=== PATIENT | female | born 1960 | race Caucasian/White ===

== ENCOUNTER 2016-08-28 12:11 | Emergency (ER) | payer OTHER ==
[~2016-08-28] VITALS: Ht 165.1 cm; Wt 64.3 kg
[~2016-08-28 12:11] MED LIST: AUGMENTIN875 MG PO; BEE POLLEN550 MG PO; BENTYL20 MG PO; BUSPAR10 MG PO; COCONUT OIL1000 MG PO; COGENTIN2 MG PO; COLACE100 MG PO; CYMBALTA60 MG PO; DAILY VITE1 EAC1 PO; DESYREL100 MG PO; FISH OIL 1,0001 EAC7 PO; FLEXERIL5 MG PO; HYDROXYZINE PAM25 MG PO; KLONOPIN0.5 M1 PO; LEVAQUIN500 MG PO; LEVOFLOXACIN750 MG PO; LORTAB 5-325 M1 EACH PO; MIRTAZAPINE30 MG PO; MOTRIN800 MG PO; NORCO 7.5/321 TABLET PO; PROBIOTIC1 EAC1 PO; REMERON15 M2 PO; SEROQUEL; SEROQUEL100 MG PO; SEROQUEL300 MG PO; SIMVASTATIN20 MG PO; TYLENOL EXTRA500 MG PO
[2016-08-28 12:58] LABS: HEMATOCRIT 46.5 % (36.0-46.0); MCH 30.8 PG (29.0-34.0); MCHC 33.3 G/DL (30.0-36.0); MCV 92.4 FL (83-99); MEAN PLAT.VOLUME 9.2 uM^3 (9.5-12.4); PLATELET COUNT 430 K/uL (156-360); RBC DIS.WIDTH-CV 13.9 % (11.8-14.6); RED BLOOD COUNT 5.03 M/uL (3.80-5.20); WHITE BLOOD COUNT 9.9 K/uL (4.1-10.2)
[2016-08-28 13:14] LABS: CHLORIDE 105 mEq/L (99-109); POTASSIUM 5.7 mEq/L (3.7-5.4); SODIUM 141 mEq/L (136-147)
[2016-08-28 13:17] LABS: ANION GAP 9 MEQ/L (2-14); GLUCOSE 95 mg/dL (70-99)
[2016-08-28 13:18] LABS: TOTAL BILIRUBIN 0.3 mg/dL (0.0-1.0)
[2016-08-28 13:20] LABS: ALKALINE PHOSPHATASE 96 IU/L (3-129); GFR ESTIMATE (CALCULATED) > 59 mL/min/
[2016-08-28 13:21] LABS: UREA NITROGEN (BUN) 14 mg/dL (9-23)
[2016-08-28 13:54] LABS: LIPASE 109 U/L (1.0-51.0)
[2016-08-28 16:30] LABS: ADD MIUA? YES; BILIRUBIN NEGATIVE; BLOOD NEGATIVE; COLOR YELLOW ((YELLOW)); GLUCOSE (STRIP) NEGATIVE; KETONES NEGATIVE; LEUKOCYTES NEGATIVE; NITRITE NEGATIVE; PROTEIN (STRIP) NEGATIVE; UROBILINOGEN 0.2 MG/DL (0.2-1.0)
[2016-08-28] MEDS ORDERED: ZOFRAN ODT4 MG PO (16:54)
[2016-08-28] MEDS ORDERED: MORPHINE SULFAT15 MG PO (16:54)
[2016-08-28 16:57] LABS: AMORPHOUS URATES CRYSTALS 2+; BACTERIA RARE /HPF; CASTS NONE SEEN /LPF; CRYSTALS PRESENT; EPITHELIAL CELLS RARE /HPF; MUCUS TRACE /LPF; RED BLOOD CELLS RARE /HPF (0-5); UCUL ADDED? NO; WHITE BLOOD CELLS RARE /HPF (0-5)
[2016-08-28 17:10] VITALS: BP 118/70
[2016-08-28 17:33] LABS: SPECIFIC GRAVITY 1.081 (1.000-1.030)
== END 2016-08-28 17:15 | disposition home or self-care (01) ==
LOC: EME 12:11
DX: K52.9 Noninfective gastroenteritis and colitis, unspecified (principal); K85.90 Acute pancreatitis without necrosis or infection, unspecified; E87.5 Hyperkalemia; B19.20 Unspecified viral hepatitis C without hepatic coma; K74.60 Unspecified cirrhosis of liver; J44.9 Chronic obstructive pulmonary disease, unspecified; Z85.3 Personal history of malignant neoplasm of breast; F17.200 Nicotine dependence, unspecified, uncomplicated
CPT/HCPCS: 74177; 80053; 81003; 83690; 85027; 99281; 99285; J2270; J2405

== ENCOUNTER 2016-09-20 09:46 | Emergency (ER) | payer OTHER ==
[~2016-09-20] VITALS: Ht 162.6 cm; Wt 63.5 kg
[~2016-09-20 09:46] MED LIST changes: +MORPHINE SULFAT15 MG PO; +ZOFRAN ODT4 MG PO
[2016-09-20 10:46] LABS: HEMATOCRIT 37.7 % (36.0-46.0); MCHC 34.7 G/DL (30.0-36.0); MCV 92.2 FL (83-99); RBC DIS.WIDTH-CV 13.2 % (11.8-14.6); RBC DIS.WIDTH-SD 45.1 % (39-53); RED BLOOD COUNT 4.09 M/uL (3.80-5.20)
[2016-09-20 10:56] LABS: CHLORIDE 105 mEq/L (99-109); POTASSIUM 3.9 mEq/L (3.7-5.4); SODIUM 138 mEq/L (136-147)
[2016-09-20 10:57] LABS: GLUCOSE 120 mg/dL (70-99)
[2016-09-20 10:59] LABS: ANION GAP 9 MEQ/L (2-14)
[2016-09-20 11:01] LABS: GFR ESTIMATE (CALCULATED) > 59 mL/min/
[2016-09-20 11:02] LABS: UREA NITROGEN (BUN) 12 mg/dL (9-23)
[2016-09-20 11:07] LABS: TROP-I INTERPRETATION NEGATIVE; TROPONIN-I < 0.01 ng/mL (0.0-0.30)
[2016-09-20 11:12] LABS: WHITE BLOOD COUNT 21.5 K/uL (4.1-10.2)
[2016-09-20 11:51] LABS: MEAN PLAT.VOLUME 9.1 uM^3 (9.5-12.4); PLAT.SUFFICIENCY ADEQUATE
[2016-09-20 12:09] LABS: PLATELET COUNT 286 K/uL (156-360)
[2016-09-20 13:43] LABS: ADD MIUA? YES; BILIRUBIN NEGATIVE; BLOOD MODERATE; COLOR YELLOW ((YELLOW)); GLUCOSE (STRIP) NEGATIVE; KETONES 20; LEUKOCYTES TRACE; NITRITE NEGATIVE; PROTEIN (STRIP) 100; UROBILINOGEN 0.2 MG/DL (0.2-1.0)
[2016-09-20 13:56] LABS: BACTERIA RARE /HPF; EPITHELIAL CELLS 1+ /HPF; MUCUS NONE SEEN /LPF; RED BLOOD CELLS TNTC /HPF (0-5); UCUL ADDED? NO; WHITE BLOOD CELLS 20-30 /HPF (0-5)
[2016-09-20 14:11] LABS: SPECIFIC GRAVITY 1.064 (1.000-1.030)
[2016-09-20] MEDS ORDERED: CIPRO500 MG PO (14:11)
[2016-09-20 15:30] VITALS: BP 116/65
== END 2016-09-20 15:32 | disposition home or self-care (01) ==
LOC: EME → EDBD 09:46 → EME 15:32
PROVIDERS: Emergency Medicine
DX: N12 Tubulo-interstitial nephritis, not specified as acute or chronic (principal); F17.200 Nicotine dependence, unspecified, uncomplicated; Z88.2 Allergy status to sulfonamides; Z91.030 Bee allergy status; J44.9 Chronic obstructive pulmonary disease, unspecified; B18.2 Chronic viral hepatitis C; Z85.3 Personal history of malignant neoplasm of breast
CPT/HCPCS: 71020; 74177; 80048; 81003; 83605; 84484; 85027; 99281; 99285; J0696; J1885; J7030; J7050

== ENCOUNTER 2017-02-10 07:53 | Emergency (ER) | payer OTHER ==
[~2017-02-10] VITALS: Ht 157.5 cm; Wt 65.2 kg
[~2017-02-10 07:53] MED LIST changes: +CIPRO500 MG PO
[2017-02-10 08:31] LABS: ADD MIUA? YES; BILIRUBIN NEGATIVE; BLOOD SMALL; COLOR YELLOW ((YELLOW)); GLUCOSE (STRIP) NEGATIVE; KETONES 80; LEUKOCYTES NEGATIVE; NITRITE NEGATIVE; PROTEIN (STRIP) 30; SPECIFIC GRAVITY 1.021 (1.000-1.030); UROBILINOGEN 0.2 MG/DL (0.2-1.0)
[2017-02-10 08:34] LABS: BACTERIA RARE /HPF; CALCIUM OXALATE CRYSTALS 1+ /HPF; EPITHELIAL CELLS 3+ /HPF; MUCUS NONE SEEN /LPF; RED BLOOD CELLS 20-30 /HPF (0-5); WHITE BLOOD CELLS 0-5 /HPF (0-5)
[2017-02-10 08:35] LABS: EOSINOPHIL (%) 0 % (0-5); IMMATURE GRANULOCYTE (%) 0.6 % (0.0-0.7); IMMATURE GRANULOCYTE COUNT 0.1 K/uL; INSTRUMENT ABS NEUTROPHIL CT 8.6 K/uL; MCH 31.8 PG (29.0-34.0); MCHC 33.7 G/DL (30.0-36.0); MCV 94.5 FL (83-99); MEAN PLAT.VOLUME 8.9 uM^3 (9.5-12.4); MONOCYTE (%) 6.9 % (3-12); MONOCYTE COUNT 0.7 K/uL (0-0.8); NEUTROPHIL COUNT 8.6 K/uL (1.8-6.4); PLATELET COUNT 393 K/uL (156-360); RBC DIS.WIDTH-CV 12.7 % (11.8-14.6); RBC DIS.WIDTH-SD 43.8 % (39-53); RED BLOOD COUNT 4.02 M/uL (3.80-5.20); WHITE BLOOD COUNT 10.4 K/uL (4.1-10.2)
[2017-02-10 08:40] LABS: ADD MEDTOX COMMENT Y; AMPHETAMINE NEGATIVE (500 ng/mL); BARBITURATES NEGATIVE (200 ng/mL); BENZODIAZEPINES NEGATIVE (150 ng/mL); COCAINE NEGATIVE (150 ng/mL); INTERNAL CONTROLS VALID? YES; METHADONE PRESUMPTIVE POSITIVE (200 ng/mL); METHAMPHETAMINE NEGATIVE (500 ng/mL); OPIATES (MORPHINE) NEGATIVE (100 ng/mL); OXYCODONE NEGATIVE (100 ng/mL); PHENCYCLIDINE NEGATIVE (25 ng/mL); PROPOXYPHENE NEGATIVE (300 ng/mL); THC CANNABINOIDS PRESUMPTIVE POSITIVE (50 ng/mL); TRICYCLIC ANTIDEPRESSANTS PRESUMPTIVE POSITIVE (300 ng/mL)
[2017-02-10 08:47] LABS: CHLORIDE 99 mEq/L (99-109); POTASSIUM 3.9 mEq/L (3.7-5.4); SODIUM 138 mEq/L (136-147)
[2017-02-10 08:49] LABS: GLUCOSE 123 mg/dL (70-99)
[2017-02-10 08:50] LABS: ANION GAP 7 MEQ/L (2-14)
[2017-02-10 08:52] LABS: SERUM ETHYL ALCOHOL < 10 mg/dL
[2017-02-10 08:53] LABS: GFR ESTIMATE (CALCULATED) > 59 mL/min/
[2017-02-10 08:54] LABS: UREA NITROGEN (BUN) 12 mg/dL (9-23)
[2017-02-10] MEDS ORDERED: ZOFRAN ODT4 MG PO (10:27)
[2017-02-10 10:30] VITALS: BP 110/65
[2017-02-11] MEDS ORDERED: ZOFRAN4 MG PO (06:09)
== END 2017-02-10 10:31 | disposition home or self-care (01) ==
LOC: EME 07:53
PROVIDERS: Emergency Medicine
DX: R11.2 Nausea with vomiting, unspecified (principal); E86.0 Dehydration; F19.10 Other psychoactive substance abuse, uncomplicated; J44.9 Chronic obstructive pulmonary disease, unspecified; F32.9 Major depressive disorder, single episode, unspecified; F31.9 Bipolar disorder, unspecified; F41.9 Anxiety disorder, unspecified; Z85.3 Personal history of malignant neoplasm of breast; F17.200 Nicotine dependence, unspecified, uncomplicated; Z79.891 Long term (current) use of opiate analgesic
CPT/HCPCS: 80048; 81003; 84999; 85025; 99281; 99284; G0480; J2405

== ENCOUNTER 2017-02-11 04:11 | Emergency (ER) | payer OTHER ==
[~2017-02-11] VITALS: Ht 157.5 cm; Wt 57.2 kg
[2017-02-11 05:29] LABS: CHLORIDE 103 mEq/L (99-109); POTASSIUM 3.4 mEq/L (3.7-5.4); SODIUM 139 mEq/L (136-147)
[2017-02-11 05:32] LABS: GLUCOSE 98 mg/dL (70-99)
[2017-02-11 05:33] LABS: ANION GAP 5 MEQ/L (2-14)
[2017-02-11 05:34] LABS: TOTAL BILIRUBIN 0.1 mg/dL (0.0-1.0)
[2017-02-11 05:35] LABS: ALKALINE PHOSPHATASE 80 IU/L (3-129); GFR ESTIMATE (CALCULATED) > 59 mL/min/
[2017-02-11 05:36] LABS: UREA NITROGEN (BUN) 9 mg/dL (9-23)
[2017-02-11 05:38] LABS: HEMATOCRIT 35.2 % (36.0-46.0); MCH 31.6 PG (29.0-34.0); MCHC 32.7 G/DL (30.0-36.0); MCV 96.7 FL (83-99); MEAN PLAT.VOLUME 9.4 uM^3 (9.5-12.4); PLATELET COUNT 369 K/uL (156-360); RBC DIS.WIDTH-CV 13.2 % (11.8-14.6); RBC DIS.WIDTH-SD 46.4 % (39-53); RED BLOOD COUNT 3.64 M/uL (3.80-5.20); WHITE BLOOD COUNT 8.4 K/uL (4.1-10.2)
[2017-02-11 05:39] LABS: LIPASE 10 U/L (1.0-51.0)
[2017-02-11] MEDS ORDERED: ZOFRAN4 MG PO (06:09)
[2017-02-11 07:08] VITALS: BP 104/71
== END 2017-02-11 07:10 | disposition home or self-care (01) ==
LOC: EME → EDBD 04:11 → EME 07:10
PROVIDERS: Emergency Medicine
DX: F11.23 Opioid dependence with withdrawal (principal); J44.9 Chronic obstructive pulmonary disease, unspecified; F32.9 Major depressive disorder, single episode, unspecified; F41.9 Anxiety disorder, unspecified; Z85.3 Personal history of malignant neoplasm of breast; F17.200 Nicotine dependence, unspecified, uncomplicated; Z88.2 Allergy status to sulfonamides
CPT/HCPCS: 71010; 80053; 83605; 83690; 85027; 99281; 99285; J2060; J7030

== ENCOUNTER 2017-03-11 03:59 | Inpatient (IN) | payer OTHER ==
[~2017-03-11] VITALS: Ht 157.5 cm; Wt 63.3 kg
[~2017-03-11 03:59] MED LIST changes: +ZOFRAN4 MG PO
[2017-03-11 04:25] LABS: EOSINOPHIL (%) 4.1 % (0-5); EOSINOPHIL COUNT 0.4 K/uL (0-0.3); HEMATOCRIT 37.7 % (36.0-46.0); IMMATURE GRANULOCYTE (%) 0.6 % (0.0-0.7); IMMATURE GRANULOCYTE COUNT 0.1 K/uL; INSTRUMENT ABS NEUTROPHIL CT 6.2 K/uL; LYMPHOCYTE COUNT 1.5 K/uL (1.0-2.8); MCH 31.1 PG (29.0-34.0); MCHC 32.9 G/DL (30.0-36.0); MCV 94.5 FL (83-99); MEAN PLAT.VOLUME 9.1 uM^3 (9.5-12.4); MONOCYTE (%) 9.8 % (3-12); MONOCYTE COUNT 0.9 K/uL (0-0.8); NEUTROPHIL (%) 68.9 % (45-76); NEUTROPHIL COUNT 6.2 K/uL (1.8-6.4); PLATELET COUNT 473 K/uL (156-360); RBC DIS.WIDTH-CV 13.8 % (11.8-14.6); RBC DIS.WIDTH-SD 48.1 % (39-53); RED BLOOD COUNT 3.99 M/uL (3.80-5.20); WHITE BLOOD COUNT 9.1 K/uL (4.1-10.2)
[2017-03-11 04:30] LABS: INTER. NORMALIZED RATIO 1.1
[2017-03-11 04:33] LABS: PTT 28.7 SEC (25-37)
[2017-03-11 04:35] LABS: CHLORIDE 100 mEq/L (99-109); POTASSIUM 5.1 mEq/L (3.7-5.4); SODIUM 141 mEq/L (136-147)
[2017-03-11 04:36] LABS: GLUCOSE 92 mg/dL (70-99)
[2017-03-11 04:38] LABS: ANION GAP 14 MEQ/L (2-14)
[2017-03-11 04:40] LABS: GFR ESTIMATE (CALCULATED) > 59 mL/min/
[2017-03-11 04:41] LABS: UREA NITROGEN (BUN) 6 mg/dL (9-23)
[2017-03-11 04:43] LABS: CREATINE KINASE 50 IU/L (1-294)
[2017-03-11] MEDS ORDERED: QUETIAPINE FUMA50 MG PO (09:09)
[2017-03-11] MEDS ORDERED: METAMUCIL PACK3.4 GM PO (09:11)
[2017-03-11] MEDS ORDERED: ZOFRAN4 MG PO (09:13)
[2017-03-11] MEDS ORDERED: REMERON30 M2 PO (09:14)
[2017-03-11] MEDS ORDERED: EFFEXOR XR150 MG PO (09:14)
[2017-03-11] MEDS ORDERED: IBUPROFEN800 MG PO (09:15)
[2017-03-11] MEDS ORDERED: GABAPENTIN300 MG PO (09:15)
[2017-03-11] MEDS ORDERED: METHADONE 22 MG/1 ML PO (09:17)
[2017-03-11 13:31] VITALS: BP 123/58
[2017-03-11 16:53] LABS: INFLUENZA A VIRAL ANTIGEN NEGATIVE; INFLUENZA B VIRAL ANTIGEN NEGATIVE
[2017-03-11 19:15] VITALS: BP 117/72
[2017-03-11 23:44] VITALS: BP 103/64
[2017-03-12 03:29] VITALS: BP 110/70
[2017-03-12 06:49] LABS: HEMATOCRIT 36.7 % (36.0-46.0); MCH 30.4 PG (29.0-34.0); MCHC 31.9 G/DL (30.0-36.0); MCV 95.3 FL (83-99); MEAN PLAT.VOLUME 9.2 uM^3 (9.5-12.4); PLATELET COUNT 498 K/uL (156-360); RBC DIS.WIDTH-CV 13.7 % (11.8-14.6); RED BLOOD COUNT 3.85 M/uL (3.80-5.20)
[2017-03-12 07:29] LABS: ANION GAP 10 MEQ/L (2-14); CHLORIDE 102 MEQ/L (99-109); GFR ESTIMATE (CALCULATED) > 59 mL/min/; POTASSIUM 5.2 MEQ/L (3.7-5.4); SAMPLE HEMOLYSIS CHECK 0; SAMPLE ICTERIC CHECK 0; SAMPLE LIPEMIA CHECK 0; SODIUM 142 MEQ/L (136-147); UREA NITROGEN (BUN) 9 mg/dL (9-23)
[2017-03-12 07:30] LABS: GLUCOSE 182 mg/dL (70-99)
[2017-03-12 08:06] VITALS: BP 94/73
[2017-03-12 08:29] LABS: INTERNAL CONTROL VALID? YES
[2017-03-12 12:30] VITALS: BP 113/68
[2017-03-12 18:04] VITALS: BP 128/72
[2017-03-12 23:59] VITALS: BP 120/68
[2017-03-13 07:39] VITALS: BP 138/80
[2017-03-13] MEDS ORDERED: AZITHROMYCIN250 MG PO (11:33)
[2017-03-13] MEDS ORDERED: PREDNISONE10 MG PO ×2 (11:33→15:39)
[2017-03-13] MEDS ORDERED: CEFTIN500 MG PO ×2 (11:33→15:40)
[2017-03-13] MEDS ORDERED: NICOTINE PATCH1 EAC2 TD (11:33)
[2017-03-13] MEDS ORDERED: METHADONE HCL40 MG PO (15:37)
[2017-03-13] MEDS ORDERED: PEPCID20 MG PO (15:37)
[2017-03-13] MEDS ORDERED: AZITHROMYCIN250 MG1 PO (15:41)
[2017-03-13] MEDS ORDERED: ATARAX,VISTARIL25 MG PO (15:42)
== END 2017-03-13 13:44 | DRG 189 ==
LOC: EME → EDBD 03:59 → EDOF 05:35 → 5SOUTH 05:35 → ENRESERV 05:35 → 5SOUTH 13:09
PROVIDERS: Emergency Medicine; Hospitalist; Internal Medicine
DX: J96.01 Acute respiratory failure with hypoxia (principal); J18.9 Pneumonia, unspecified organism; M79.89 Other specified soft tissue disorders; M19.011 Primary osteoarthritis, right shoulder; J43.9 Emphysema, unspecified; F33.9 Major depressive disorder, recurrent, unspecified; F31.9 Bipolar disorder, unspecified; M54.2 Cervicalgia; R60.0 Localized edema; M54.12 Radiculopathy, cervical region; F17.200 Nicotine dependence, unspecified, uncomplicated; G89.29 Other chronic pain; Z91.5 Personal history of self-harm; Z85.3 Personal history of malignant neoplasm of breast; Z82.3 Family history of stroke; Z79.899 Other long term (current) drug therapy; Z92.3 Personal history of irradiation; Z81.8 Family history of other mental and behavioral disorders; Z88.0 Allergy status to penicillin; Z88.6 Allergy status to analgesic agent; Z91.030 Bee allergy status; Z81.1 Family history of alcohol abuse and dependence
CPT/HCPCS: 71275; 73030; 73130; 80048; 82550; 83605; 83880; 85025; 85027; 85610; 85730; 87040; 87449; 87502; 93005; 93971; 94640; 94640 76; 94799; 99202; 99281; 99285; J0696; J1650; J1956; J2920; J3301; J7030; J7050; J7512

== ENCOUNTER 2017-03-13 13:14 | Inpatient (IN) | payer OTHER ==
[~2017-03-13] VITALS: Ht 157.5 cm; Wt 56.4 kg
[~2017-03-13 13:14] MED LIST changes: +AZITHROMYCIN250 MG PO; +CEFTIN500 MG PO; +EFFEXOR XR150 MG PO; +GABAPENTIN300 MG PO; +IBUPROFEN800 MG PO; +METAMUCIL PACK3.4 GM PO; +METHADONE 22 MG/1 ML PO; +NICOTINE PATCH1 EAC2 TD; +PREDNISONE10 MG PO; +QUETIAPINE FUMA50 MG PO; +REMERON30 M2 PO
[2017-03-13 14:05] VITALS: BP 140/83
[2017-03-13 14:28] VITALS: BP 140/83
[2017-03-13] MEDS ORDERED: METHADONE HCL40 MG PO (15:37)
[2017-03-13] MEDS ORDERED: PEPCID20 MG PO (15:37)
[2017-03-13] MEDS ORDERED: PREDNISONE10 MG PO (15:39)
[2017-03-13] MEDS ORDERED: CEFTIN500 MG PO (15:40)
[2017-03-13] MEDS ORDERED: AZITHROMYCIN250 MG1 PO (15:41)
[2017-03-13] MEDS ORDERED: ATARAX,VISTARIL25 MG PO (15:42)
[2017-03-14 07:56] VITALS: BP 150/81
[2017-03-14 11:58] VITALS: BP 111/65
[2017-03-14 15:33] VITALS: BP 132/78
[2017-03-15 07:43] VITALS: BP 156/74
[2017-03-15 11:36] VITALS: BP 117/77
[2017-03-15 15:30] VITALS: BP 128/67
[2017-03-16 07:38] VITALS: BP 120/77
[2017-03-16 17:49] VITALS: BP 137/75
[2017-03-17 07:59] VITALS: BP 118/74
[2017-03-17] MEDS ORDERED: AZITHROMYCIN250 MG1 PO (09:08)
[2017-03-17] MEDS ORDERED: CEFTIN500 MG PO (09:08)
== END 2017-03-17 11:25 | disposition home or self-care (01) | DRG 885 ==
LOC: 1WEST 13:14
DX: F33.1 Major depressive disorder, recurrent, moderate (principal); J18.9 Pneumonia, unspecified organism; F11.20 Opioid dependence, uncomplicated; B18.2 Chronic viral hepatitis C; F17.210 Nicotine dependence, cigarettes, uncomplicated; F19.11 Other psychoactive substance abuse, in remission; F41.9 Anxiety disorder, unspecified; K59.00 Constipation, unspecified; Z88.5 Allergy status to narcotic agent; Z88.2 Allergy status to sulfonamides; Z91.5 Personal history of self-harm; Z85.3 Personal history of malignant neoplasm of breast; Z81.8 Family history of other mental and behavioral disorders
CPT/HCPCS: 97150 GO; J7512

== ENCOUNTER 2017-04-09 10:38 | Emergency (ER) | payer OTHER ==
[~2017-04-09] VITALS: Ht 157.5 cm; Wt 55.4 kg
[~2017-04-09 10:38] MED LIST changes: +ATARAX,VISTARIL25 MG PO; +AZITHROMYCIN250 MG1 PO; +METHADONE HCL40 MG PO; +PEPCID20 MG PO
[2017-04-09 12:23] LABS: HEMATOCRIT 50.3 % (36.0-46.0); MCH 31.3 PG (29.0-34.0); MCV 92.1 FL (83-99); MEAN PLAT.VOLUME 9.6 uM^3 (9.5-12.4); PLATELET COUNT 391 K/uL (156-360); RBC DIS.WIDTH-CV 14.4 % (11.8-14.6); WHITE BLOOD COUNT 12.9 K/uL (4.1-10.2)
[2017-04-09 12:24] LABS: RED BLOOD COUNT 5.46 M/uL (3.80-5.20)
[2017-04-09 12:31] LABS: CHLORIDE 104 mEq/L (99-109); POTASSIUM 4.7 mEq/L (3.7-5.4); SODIUM 142 mEq/L (136-147)
[2017-04-09 12:32] LABS: GLUCOSE 139 mg/dL (70-99)
[2017-04-09 12:34] LABS: ANION GAP 13 MEQ/L (2-14)
[2017-04-09 12:36] LABS: GFR ESTIMATE (CALCULATED) 54 mL/min/
[2017-04-09 12:37] LABS: UREA NITROGEN (BUN) 17 mg/dL (9-23)
[2017-04-09 13:30] VITALS: BP 152/85
[2017-04-09 13:55] LABS: BILIRUBIN NEGATIVE; BLOOD NEGATIVE; GLUCOSE (STRIP) NEGATIVE; KETONES 20; LEUKOCYTES NEGATIVE; NITRITE NEGATIVE; PROTEIN (STRIP) 30; SPECIFIC GRAVITY 1.027 (1.000-1.030)
[2017-04-09 13:56] LABS: ADD MIUA? NO; COLOR DK YELLOW ((YELLOW)); UCUL ADDED? NO
[2017-04-09] MEDS ORDERED: ZOFRAN4 MG PO (14:24)
== END 2017-04-09 17:29 | disposition home or self-care (01) ==
LOC: EME 10:38
DX: R11.2 Nausea with vomiting, unspecified (principal); F33.1 Major depressive disorder, recurrent, moderate; J44.9 Chronic obstructive pulmonary disease, unspecified; F41.9 Anxiety disorder, unspecified; F17.200 Nicotine dependence, unspecified, uncomplicated; Z85.3 Personal history of malignant neoplasm of breast; Z88.2 Allergy status to sulfonamides
CPT/HCPCS: 80048; 81003; 85027; 90839; J2405; J7030

== ENCOUNTER 2017-04-15 04:13 | Observation (INO) | payer OTHER ==
[~2017-04-15] VITALS: Ht 157.5 cm; Wt 59.2 kg
[2017-04-15 04:53] LABS: BASOPHIL COUNT 0.1 K/uL (0-0.1); EOSINOPHIL (%) 0.8 % (0-5); EOSINOPHIL COUNT 0.1 K/uL (0-0.3); HEMATOCRIT 51.9 % (36.0-46.0); IMMATURE GRANULOCYTE (%) 0.6 % (0.0-0.7); IMMATURE GRANULOCYTE COUNT 0.1 K/uL; INSTRUMENT ABS NEUTROPHIL CT 11.4 K/uL; LYMPHOCYTE COUNT 2.7 K/uL (1.0-2.8); MCH 30.7 PG (29.0-34.0); MCHC 33.1 G/DL (30.0-36.0); MCV 92.5 FL (83-99); MEAN PLAT.VOLUME 9.6 uM^3 (9.5-12.4); MONOCYTE (%) 7.3 % (3-12); MONOCYTE COUNT 1.1 K/uL (0-0.8); NEUTROPHIL (%) 73.5 % (45-76); NEUTROPHIL COUNT 11.4 K/uL (1.8-6.4); PLATELET COUNT 373 K/uL (156-360); RBC DIS.WIDTH-CV 14.4 % (11.8-14.6); RBC DIS.WIDTH-SD 49.3 % (39-53); RED BLOOD COUNT 5.61 M/uL (3.80-5.20); WHITE BLOOD COUNT 15.6 K/uL (4.1-10.2)
[2017-04-15 05:00] LABS: CHLORIDE 105 mEq/L (99-109); POTASSIUM 4.9 mEq/L (3.7-5.4); SODIUM 142 mEq/L (136-147)
[2017-04-15 05:02] LABS: GLUCOSE 105 mg/dL (70-99)
[2017-04-15 05:03] LABS: ANION GAP 13 MEQ/L (2-14)
[2017-04-15 05:04] LABS: TOTAL BILIRUBIN < 0.1 mg/dL (0.0-1.0)
[2017-04-15 05:06] LABS: ALKALINE PHOSPHATASE 101 IU/L (3-129); GFR ESTIMATE (CALCULATED) > 59 mL/min/
[2017-04-15 05:07] LABS: UREA NITROGEN (BUN) 15 mg/dL (9-23)
[2017-04-15 05:09] LABS: LIPASE 11 U/L (1.0-51.0)
[2017-04-15 05:47] LABS: C DIFF TOXIN NEGATIVE (NEGATIVE)
[2017-04-15 05:50] LABS: PROBE CHECK PASS; SPECIMEN PROCESSING CONTROL PASS
[2017-04-15] MEDS ORDERED: LAMOTRIGINE25 MG PO (08:17)
[2017-04-15 08:49] LABS: TROP-I INTERPRETATION NEGATIVE; TROPONIN-I < 0.01 ng/mL (0.0-0.30)
[2017-04-15 14:23] LABS: TROP-I INTERPRETATION NEGATIVE; TROPONIN-I < 0.01 ng/mL (0.0-0.30)
[2017-04-15 15:39] VITALS: BP 127/73
[2017-04-15] MEDS ORDERED: COLACE100 MG PO (16:47)
[2017-04-15 20:00] VITALS: BP 118/79
[2017-04-15 20:42] LABS: TROP-I INTERPRETATION NEGATIVE; TROPONIN-I < 0.01 ng/mL (0.0-0.30)
[2017-04-16 00:04] VITALS: BP 120/76
[2017-04-16 05:24] LABS: MCH 30.2 PG (29.0-34.0); MCHC 32.1 G/DL (30.0-36.0); MCV 94.1 FL (83-99); MEAN PLAT.VOLUME 9.1 uM^3 (9.5-12.4); PLATELET COUNT 335 K/uL (156-360); RBC DIS.WIDTH-CV 14.4 % (11.8-14.6); RBC DIS.WIDTH-SD 49.8 % (39-53)
[2017-04-16 05:25] LABS: RED BLOOD COUNT 4.04 M/uL (3.80-5.20)
[2017-04-16 08:00] VITALS: BP 122/75
[2017-04-16] MEDS ORDERED: LOPERAMIDE2 MG PO (09:51)
[2017-04-16] MEDS ORDERED: ZOFRAN4 MG PO (09:51)
[2017-04-16] MEDS ORDERED: NICOTINE PATCH1 EAC2 TD (09:52)
[2017-04-16 12:16] VITALS: BP 119/74
== END 2017-04-16 12:48 | disposition home or self-care (01) ==
LOC: EME → EDBD 04:13 → EME 04:13 → EDOF 07:52 → 5WEST 07:52 → ENRESERV 07:59 → EDOF 08:06 → ENRESERV 13:17 → 5WEST 15:10
PROVIDERS: Emergency Medicine; Internal Medicine
DX: R11.2 Nausea with vomiting, unspecified (principal); E86.0 Dehydration; F11.20 Opioid dependence, uncomplicated; I10 Essential (primary) hypertension; K38.1 Appendicular concretions; R19.7 Diarrhea, unspecified; F10.21 Alcohol dependence, in remission; F17.200 Nicotine dependence, unspecified, uncomplicated; F31.9 Bipolar disorder, unspecified; Z91.5 Personal history of self-harm; B18.2 Chronic viral hepatitis C; Z85.3 Personal history of malignant neoplasm of breast; Z92.3 Personal history of irradiation; D72.829 Elevated white blood cell count, unspecified; Z88.2 Allergy status to sulfonamides; Z88.5 Allergy status to narcotic agent; Z91.030 Bee allergy status
CPT/HCPCS: 74176; 80053; 81003; 83690; 84484; 85025; 85027; 87493; 87506; 93005; 99202; 99281; 99285; G0378; J1650; J2405; J2765; J7030; Q0169; S0028

== ENCOUNTER 2017-07-09 12:46 | Emergency (ER) | payer OTHER ==
[~2017-07-09] VITALS: Ht 160 cm; Wt 54.7 kg
[~2017-07-09 12:46] MED LIST changes: +LAMOTRIGINE25 MG PO; +LOPERAMIDE2 MG PO
[2017-07-09 13:32] LABS: BASOPHIL (%) 0.2 % (0-1); EOSINOPHIL (%) 0.3 % (0-5); HEMATOCRIT 43.8 % (36.0-46.0); HEMOGLOBIN 15.1 G/DL (11.9-15.5); IMMATURE GRANULOCYTE (%) 0.3 % (0.0-0.7); LYMPHOCYTE (%) 14.6 % (15-42); LYMPHOCYTE COUNT 1.6 K/uL (1.0-2.8); MCHC 34.5 G/DL (30.0-36.0); MCV 89.9 FL (83-99); MONOCYTE (%) 5.8 % (3-12); MONOCYTE COUNT 0.6 K/uL (0-0.8); NEUTROPHIL (%) 78.8 % (45-76); NEUTROPHIL COUNT 8.6 K/uL (1.8-6.4); PLATELET COUNT 397 K/uL (156-360); RBC DIS.WIDTH-CV 13.5 % (11.8-14.6); RBC DIS.WIDTH-SD 44.8 % (39-53); RED BLOOD COUNT 4.87 M/uL (3.80-5.20)
[2017-07-09 13:37] LABS: CHLORIDE 103 mEq/L (99-109); SODIUM 137 mEq/L (136-147)
[2017-07-09 13:40] LABS: GLUCOSE 133 mg/dL (70-99); TOTAL PROTEIN 6.6 g/dL (6.4-8.3)
[2017-07-09 13:41] LABS: TOTAL BILIRUBIN 0.4 mg/dL (0.0-1.0)
[2017-07-09 13:42] LABS: SERUM ETHYL ALCOHOL < 10 mg/dL
[2017-07-09 13:43] LABS: ALKALINE PHOSPHATASE 96 IU/L (3-129); CREATININE 1.1 mg/dL (0.6-1.3); GFR ESTIMATE (CALCULATED) 54 mL/min/
[2017-07-09 13:44] LABS: UREA NITROGEN (BUN) 23 mg/dL (9-23)
[2017-07-09 13:45] LABS: AST (GOT) 18 IU/L (2-34)
[2017-07-09 13:46] LABS: ALT (GPT) 16 IU/L (3-49)
[2017-07-09 14:48] LABS: AMPHETAMINE NEGATIVE (500 ng/mL); BARBITURATES NEGATIVE (200 ng/mL); BENZODIAZEPINES NEGATIVE (150 ng/mL); COCAINE NEGATIVE (150 ng/mL); METHADONE PRESUMPTIVE POSITIVE (200 ng/mL); METHAMPHETAMINE NEGATIVE (500 ng/mL); OPIATES (MORPHINE) NEGATIVE (100 ng/mL); PHENCYCLIDINE PRESUMPTIVE POSITIVE (25 ng/mL); THC CANNABINOIDS PRESUMPTIVE POSITIVE (50 ng/mL); TRICYCLIC ANTIDEPRESSANTS PRESUMPTIVE POSITIVE (300 ng/mL)
[2017-07-09 14:49] LABS: BUPRENORPHINE NEGATIVE (10 ng/mL); OXYCODONE NEGATIVE (100 ng/mL); PROPOXYPHENE NEGATIVE (300 ng/mL)
[2017-07-09 16:00] VITALS: BP 134/97
== END 2017-07-09 16:05 | disposition home or self-care (01) ==
LOC: EME 12:46
PROVIDERS: Emergency Medicine
DX: F33.1 Major depressive disorder, recurrent, moderate (principal); J44.9 Chronic obstructive pulmonary disease, unspecified; B19.20 Unspecified viral hepatitis C without hepatic coma; G89.29 Other chronic pain; F31.9 Bipolar disorder, unspecified; F41.9 Anxiety disorder, unspecified; F32.9 Major depressive disorder, single episode, unspecified; F17.200 Nicotine dependence, unspecified, uncomplicated; Z79.891 Long term (current) use of opiate analgesic; Z85.3 Personal history of malignant neoplasm of breast; Z90.10 Acquired absence of unspecified breast and nipple; Z88.2 Allergy status to sulfonamides; Z88.5 Allergy status to narcotic agent; Z91.030 Bee allergy status
CPT/HCPCS: 80053; 84999; 85025; 90839; 99281; 99285; G0480

== ENCOUNTER 2017-08-26 10:38 | Emergency (ER) | payer OTHER ==
[~2017-08-26] VITALS: Ht 157.5 cm; Wt 54.7 kg
[2017-08-26 11:14] LABS: HEMATOCRIT 43.7 % (36.0-46.0); HEMOGLOBIN 14.9 G/DL (11.9-15.5); MCH 31.8 PG (29.0-34.0); MCHC 34.1 G/DL (30.0-36.0); MCV 93.4 FL (83-99); PLATELET COUNT 367 K/uL (156-360); RBC DIS.WIDTH-CV 13.6 % (11.8-14.6); RBC DIS.WIDTH-SD 46.5 % (39-53); RED BLOOD COUNT 4.68 M/uL (3.80-5.20); WHITE BLOOD COUNT 10.7 K/uL (4.1-10.2)
[2017-08-26 11:26] LABS: ALBUMIN 4.2 g/dL (3.2-4.8); CHLORIDE 104 mEq/L (99-109); POTASSIUM 4.5 mEq/L (3.7-5.4); SODIUM 141 mEq/L (136-147)
[2017-08-26 11:28] LABS: GLUCOSE 117 mg/dL (70-99); TOTAL PROTEIN 6.8 g/dL (6.4-8.3)
[2017-08-26 11:30] LABS: TOTAL BILIRUBIN 0.4 mg/dL (0.0-1.0)
[2017-08-26 11:32] LABS: ALKALINE PHOSPHATASE 97 IU/L (3-129); CREATININE 0.8 mg/dL (0.6-1.3); GFR ESTIMATE (CALCULATED) > 59 mL/min/
[2017-08-26 11:33] LABS: UREA NITROGEN (BUN) 15 mg/dL (9-23)
[2017-08-26 11:34] LABS: AST (GOT) 18 IU/L (2-34)
[2017-08-26 11:35] LABS: ALT (GPT) 16 IU/L (3-49)
[2017-08-26 11:47] LABS: APPEARANCE SL.HAZY ((CLEAR)); BILIRUBIN NEGATIVE; BLOOD NEGATIVE; COLOR YELLOW ((YELLOW)); GLUCOSE (STRIP) NEGATIVE; KETONES NEGATIVE; LEUKOCYTES TRACE; NITRITE NEGATIVE; PROTEIN (STRIP) NEGATIVE; SPECIFIC GRAVITY 1.017 (1.000-1.030); UROBILINOGEN 0.2 MG/DL (0.2-1.0)
[2017-08-26 11:56] LABS: BACTERIA NONE SEEN /HPF; EPITHELIAL CELLS RARE /HPF; MUCUS TRACE /LPF; UCUL ADDED? NO; WHITE BLOOD CELLS 0-5 /HPF (0-5)
[2017-08-26 12:07] LABS: LIPASE 4 U/L (1.0-51.0)
[2017-08-26] MEDS ORDERED: BENTYL20 MG PO (14:12)
[2017-08-26 14:34] VITALS: BP 130/82
== END 2017-08-26 14:35 | disposition home or self-care (01) ==
LOC: EME 10:38
DX: K59.00 Constipation, unspecified (principal); R11.2 Nausea with vomiting, unspecified; M25.519 Pain in unspecified shoulder; F11.99 Opioid use, unspecified with unspecified opioid-induced disorder; M43.17 Spondylolisthesis, lumbosacral region; Z90.10 Acquired absence of unspecified breast and nipple; Z85.3 Personal history of malignant neoplasm of breast; Z88.2 Allergy status to sulfonamides; F17.200 Nicotine dependence, unspecified, uncomplicated
CPT/HCPCS: 74176; 80053; 81003; 83690; 85027; 87086; 99281; 99284

== ENCOUNTER 2017-09-16 23:27 | Inpatient (IN) | payer OTHER ==
[~2017-09-16] VITALS: Ht 157.5 cm; Wt 53.4 kg
[2017-09-16 23:55] LABS: HEMATOCRIT 42.6 % (36.0-46.0); HEMOGLOBIN 14.6 G/DL (11.9-15.5); MCH 32.2 PG (29.0-34.0); MCHC 34.3 G/DL (30.0-36.0); PLATELET COUNT 369 K/uL (156-360); RBC DIS.WIDTH-CV 13.6 % (11.8-14.6); RBC DIS.WIDTH-SD 46.5 % (39-53); RED BLOOD COUNT 4.53 M/uL (3.80-5.20); WHITE BLOOD COUNT 9.6 K/uL (4.1-10.2)
[2017-09-17 00:14] LABS: CHLORIDE 102 mEq/L (99-109); POTASSIUM 4.1 mEq/L (3.7-5.4); SODIUM 142 mEq/L (136-147)
[2017-09-17 00:16] LABS: GLUCOSE 102 mg/dL (70-99)
[2017-09-17 00:19] LABS: SERUM ETHYL ALCOHOL < 10 mg/dL
[2017-09-17 00:20] LABS: CREATININE 0.8 mg/dL (0.6-1.3); GFR ESTIMATE (CALCULATED) > 59 mL/min/
[2017-09-17 00:21] LABS: UREA NITROGEN (BUN) 12 mg/dL (9-23)
[2017-09-17 00:55] LABS: AMPHETAMINE NEGATIVE (500 ng/mL); BARBITURATES NEGATIVE (200 ng/mL); BENZODIAZEPINES NEGATIVE (150 ng/mL); BUPRENORPHINE NEGATIVE (10 ng/mL); COCAINE NEGATIVE (150 ng/mL); METHADONE PRESUMPTIVE POSITIVE (200 ng/mL); METHAMPHETAMINE NEGATIVE (500 ng/mL); OPIATES (MORPHINE) NEGATIVE (100 ng/mL); OXYCODONE NEGATIVE (100 ng/mL); PHENCYCLIDINE NEGATIVE (25 ng/mL); PROPOXYPHENE NEGATIVE (300 ng/mL); THC CANNABINOIDS PRESUMPTIVE POSITIVE (50 ng/mL); TRICYCLIC ANTIDEPRESSANTS NEGATIVE (300 ng/mL)
[2017-09-17 04:08] VITALS: BP 141/92
[2017-09-17 08:22] VITALS: BP 122/70
[2017-09-17 17:05] VITALS: BP 128/75
[2017-09-18 09:20] VITALS: BP 114/63
[2017-09-18 16:36] VITALS: BP 109/56
[2017-09-19 08:02] VITALS: BP 134/75
[2017-09-19 15:25] VITALS: BP 106/52
[2017-09-19 21:35] LABS: APPEARANCE SL.HAZY ((CLEAR)); BILIRUBIN NEGATIVE; BLOOD SMALL; COLOR YELLOW ((YELLOW)); GLUCOSE (STRIP) NEGATIVE; KETONES NEGATIVE; LEUKOCYTES NEGATIVE; NITRITE NEGATIVE; PROTEIN (STRIP) NEGATIVE; SPECIFIC GRAVITY 1.019 (1.000-1.030); UROBILINOGEN 0.2 MG/DL (0.2-1.0)
[2017-09-19 21:43] LABS: BACTERIA RARE /HPF; EPITHELIAL CELLS RARE /HPF; HYALINE CASTS 0-5 /LPF; MUCUS TRACE /LPF; RED BLOOD CELLS 0-5 /HPF (0-5); UCUL ADDED? NO; WHITE BLOOD CELLS 0-5 /HPF (0-5)
[2017-09-20 07:46] VITALS: BP 151/71
[2017-09-20 15:57] VITALS: BP 117/76
[2017-09-21 08:23] VITALS: BP 111/58
[2017-09-21] MEDS ORDERED: SEROQUEL300 MG PO (09:39)
[2017-09-21] MEDS ORDERED: REMERON30 M2 PO (09:39)
== END 2017-09-21 11:07 | disposition home or self-care (01) | DRG 885 ==
LOC: EME 23:27 → EDOF 09-17 02:10 → ENRESERV 09-17 03:29 → 1WEST 09-17 04:03
PROVIDERS: Psychiatry & Neurology Psychiatry
DX: F33.1 Major depressive disorder, recurrent, moderate (principal); R45.851 Suicidal ideations; F14.90 Cocaine use, unspecified, uncomplicated; G47.00 Insomnia, unspecified; F41.1 Generalized anxiety disorder; F11.90 Opioid use, unspecified, uncomplicated; Z85.3 Personal history of malignant neoplasm of breast; Z72.89 Other problems related to lifestyle; Z81.8 Family history of other mental and behavioral disorders; Z91.14 Patient's other noncompliance with medication regimen; Z91.5 Personal history of self-harm; F17.200 Nicotine dependence, unspecified, uncomplicated
CPT/HCPCS: 80048; 81003; 84999; 85027; 90839; 97150 GO; 97165 GO; 99281; 99285; G0480

== ENCOUNTER 2017-10-01 20:53 | Emergency (ER) | payer OTHER ==
[~2017-10-01] VITALS: Ht 157.5 cm; Wt 79.4 kg
[2017-10-01 22:40] LABS: HEMATOCRIT 39.4 % (36.0-46.0); HEMOGLOBIN 13.5 G/DL (11.9-15.5); MCH 32.2 PG (29.0-34.0); MCHC 34.3 G/DL (30.0-36.0); PLATELET COUNT 326 K/uL (156-360); RBC DIS.WIDTH-SD 44.2 % (39-53); RED BLOOD COUNT 4.19 M/uL (3.80-5.20); WHITE BLOOD COUNT 7.9 K/uL (4.1-10.2)
[2017-10-01 22:49] LABS: APPEARANCE CLEAR ((CLEAR)); BILIRUBIN NEGATIVE; BLOOD SMALL; COLOR STRAW ((YELLOW)); GLUCOSE (STRIP) NEGATIVE; KETONES NEGATIVE; LEUKOCYTES NEGATIVE; NITRITE NEGATIVE; PROTEIN (STRIP) NEGATIVE; SPECIFIC GRAVITY 1.005 (1.000-1.030); UROBILINOGEN 0.2 MG/DL (0.2-1.0)
[2017-10-01 22:50] LABS: CHLORIDE 104 mEq/L (99-109); POTASSIUM 4.6 mEq/L (3.7-5.4); SODIUM 144 mEq/L (136-147)
[2017-10-01 22:51] LABS: GLUCOSE 84 mg/dL (70-99)
[2017-10-01 22:51] LABS: BACTERIA RARE /HPF; EPITHELIAL CELLS RARE /HPF; MUCUS TRACE /LPF; RED BLOOD CELLS 0-5 /HPF (0-5); UCUL ADDED? NO; WHITE BLOOD CELLS 0-5 /HPF (0-5)
[2017-10-01 22:55] LABS: CREATININE 0.7 mg/dL (0.6-1.3); GFR ESTIMATE (CALCULATED) > 59 mL/min/
[2017-10-01 22:56] LABS: UREA NITROGEN (BUN) 11 mg/dL (9-23)
[2017-10-02 01:00] VITALS: BP 106/73
== END 2017-10-02 02:16 | disposition home or self-care (01) ==
LOC: EME 20:53
PROVIDERS: Emergency Medicine
DX: M51.26 Other intervertebral disc displacement, lumbar region (principal); R31.9 Hematuria, unspecified; M48.061 Spinal stenosis, lumbar region without neurogenic claudication; J44.9 Chronic obstructive pulmonary disease, unspecified; B19.20 Unspecified viral hepatitis C without hepatic coma; F31.9 Bipolar disorder, unspecified; F41.9 Anxiety disorder, unspecified; F32.9 Major depressive disorder, single episode, unspecified; F17.200 Nicotine dependence, unspecified, uncomplicated; Z79.891 Long term (current) use of opiate analgesic; Z90.10 Acquired absence of unspecified breast and nipple; Z85.3 Personal history of malignant neoplasm of breast; Z85.038 Personal history of other malignant neoplasm of large intestine; Z85.528 Personal history of other malignant neoplasm of kidney; Z80.0 Family history of malignant neoplasm of digestive organs; Z80.51 Family history of malignant neoplasm of kidney; Z88.5 Allergy status to narcotic agent; Z88.2 Allergy status to sulfonamides; Z91.030 Bee allergy status
CPT/HCPCS: 72132; 74177; 80048; 81003; 85027; 99281; 99285; J7030

== ENCOUNTER 2017-11-16 16:24 | Inpatient (IN) | payer OTHER ==
[~2017-11-16] VITALS: Ht 157.5 cm; Wt 60.5 kg
[2017-11-16 17:26] LABS: HEMATOCRIT 47.2 % (36.0-46.0); HEMOGLOBIN 16.4 G/DL (11.9-15.5); MCH 31.8 PG (29.0-34.0); MCHC 34.7 G/DL (30.0-36.0); MCV 91.5 FL (83-99); PLATELET COUNT 380 K/uL (156-360); RBC DIS.WIDTH-CV 13.4 % (11.8-14.6); RBC DIS.WIDTH-SD 45.5 % (39-53); RED BLOOD COUNT 5.16 M/uL (3.80-5.20); WHITE BLOOD COUNT 17.6 K/uL (4.1-10.2)
[2017-11-16 17:37] LABS: ALBUMIN 4.3 g/dL (3.2-4.8); CHLORIDE 95 mEq/L (99-109); POTASSIUM 4.3 mEq/L (3.7-5.4); SODIUM 140 mEq/L (136-147)
[2017-11-16 17:39] LABS: GLUCOSE 153 mg/dL (70-99); TOTAL PROTEIN 7.5 g/dL (6.4-8.3)
[2017-11-16 17:41] LABS: TOTAL BILIRUBIN 0.4 mg/dL (0.0-1.0)
[2017-11-16 17:42] LABS: SERUM ETHYL ALCOHOL < 10 mg/dL
[2017-11-16 17:43] LABS: ALKALINE PHOSPHATASE 123 IU/L (3-129); GFR ESTIMATE (CALCULATED) > 59 mL/min/
[2017-11-16 17:44] LABS: AST (GOT) 21 IU/L (2-34); UREA NITROGEN (BUN) 20 mg/dL (9-23)
[2017-11-16 17:46] LABS: ALT (GPT) 22 IU/L (3-49); LIPASE 6 U/L (1.0-51.0)
[2017-11-16 22:57] LABS: APPEARANCE CLEAR ((CLEAR)); BILIRUBIN NEGATIVE; BLOOD NEGATIVE; COLOR YELLOW ((YELLOW)); GLUCOSE (STRIP) NEGATIVE; KETONES NEGATIVE; LEUKOCYTES NEGATIVE; NITRITE NEGATIVE; PROTEIN (STRIP) 30; SPECIFIC GRAVITY 1.056 (1.000-1.030); UCUL ADDED? NO; UROBILINOGEN 0.2 MG/DL (0.2-1.0)
[2017-11-16 23:08] LABS: AMPHETAMINE NEGATIVE (500 ng/mL); BARBITURATES NEGATIVE (200 ng/mL); BENZODIAZEPINES NEGATIVE (150 ng/mL); BUPRENORPHINE NEGATIVE (10 ng/mL); COCAINE NEGATIVE (150 ng/mL); METHADONE PRESUMPTIVE POSITIVE (200 ng/mL); METHAMPHETAMINE NEGATIVE (500 ng/mL); OPIATES (MORPHINE) NEGATIVE (100 ng/mL); OXYCODONE NEGATIVE (100 ng/mL); PHENCYCLIDINE NEGATIVE (25 ng/mL); PROPOXYPHENE NEGATIVE (300 ng/mL); THC CANNABINOIDS PRESUMPTIVE POSITIVE (50 ng/mL); TRICYCLIC ANTIDEPRESSANTS PRESUMPTIVE POSITIVE (300 ng/mL)
[2017-11-17] MEDS ORDERED: LYRICA50 MG PO (00:18)
[2017-11-17] MEDS ORDERED: ATARAX,VISTARIL25 MG PO (00:19)
[2017-11-17] MEDS ORDERED: QUETIAPINE FUM300 MG PO (00:20)
[2017-11-17] MEDS ORDERED: PROZAC10 MG PO (00:20)
[2017-11-17] MEDS ORDERED: MIRTAZAPINE30 MG PO (00:20)
[2017-11-17] MEDS ORDERED: TRAZODONE HCL50 MG PO (00:20)
[2017-11-17] MEDS ORDERED: GABAPENTIN300 MG PO (00:20)
[2017-11-17] MEDS ORDERED: MIRTAZAPINE45 MG PO (00:21)
[2017-11-17] MEDS ORDERED: BENTYL20 MG PO (00:21)
[2017-11-17] MEDS ORDERED: VENLAFAXINE HC150 M1 PO (00:21)
[2017-11-17] MEDS ORDERED: ARIPIPRAZOLE10 MG PO (00:21)
[2017-11-17 00:54] VITALS: BP 131/66
[2017-11-17 04:50] VITALS: BP 128/72
[2017-11-17 05:58] LABS: BASOPHIL (%) 0.3 % (0-1); EOSINOPHIL (%) 0.2 % (0-5); HEMATOCRIT 38.4 % (36.0-46.0); IMMATURE GRANULOCYTE (%) 0.3 % (0.0-0.7); LYMPHOCYTE (%) 20.2 % (15-42); LYMPHOCYTE COUNT 1.9 K/uL (1.0-2.8); MCH 31.1 PG (29.0-34.0); MCHC 33.6 G/DL (30.0-36.0); MCV 92.5 FL (83-99); MONOCYTE (%) 5.6 % (3-12); MONOCYTE COUNT 0.5 K/uL (0-0.8); NEUTROPHIL (%) 73.4 % (45-76); PLATELET COUNT 320 K/uL (156-360); RBC DIS.WIDTH-CV 13.8 % (11.8-14.6); RBC DIS.WIDTH-SD 46.7 % (39-53); RED BLOOD COUNT 4.15 M/uL (3.80-5.20); WHITE BLOOD COUNT 9.6 K/uL (4.1-10.2)
[2017-11-17 05:59] LABS: HEMOGLOBIN 12.9 G/DL (11.9-15.5)
[2017-11-17 06:22] LABS: CHLORIDE 103 MEQ/L (99-109); CREATININE 0.7 MG/DL (0.6-1.3); GFR ESTIMATE (CALCULATED) > 59 mL/min/; GLUCOSE 115 mg/dL (70-99); POTASSIUM 4.1 MEQ/L (3.7-5.4); SODIUM 141 MEQ/L (136-147); UREA NITROGEN (BUN) 16 mg/dL (9-23)
[2017-11-17 07:56] VITALS: BP 130/64
[2017-11-17 16:22] VITALS: BP 113/73
[2017-11-17 20:12] VITALS: BP 134/66
[2017-11-18 00:02] VITALS: BP 120/72
[2017-11-18 04:02] VITALS: BP 115/57
[2017-11-18 06:24] LABS: BASOPHIL (%) 0.4 % (0-1); EOSINOPHIL (%) 1.6 % (0-5); EOSINOPHIL COUNT 0.1 K/uL (0-0.3); HEMOGLOBIN 12.7 G/DL (11.9-15.5); IMMATURE GRANULOCYTE (%) 0.3 % (0.0-0.7); LYMPHOCYTE (%) 28.8 % (15-42); LYMPHOCYTE COUNT 2.2 K/uL (1.0-2.8); MCH 31.1 PG (29.0-34.0); MCHC 33.4 G/DL (30.0-36.0); MCV 93.1 FL (83-99); MONOCYTE COUNT 0.7 K/uL (0-0.8); NEUTROPHIL (%) 59.9 % (45-76); NEUTROPHIL COUNT 4.5 K/uL (1.8-6.4); PLATELET COUNT 282 K/uL (156-360); RBC DIS.WIDTH-CV 13.5 % (11.8-14.6); RBC DIS.WIDTH-SD 46.1 % (39-53); RED BLOOD COUNT 4.08 M/uL (3.80-5.20); WHITE BLOOD COUNT 7.5 K/uL (4.1-10.2)
[2017-11-18 06:55] LABS: CHLORIDE 105 MEQ/L (99-109); CREATININE 0.6 MG/DL (0.6-1.3); GFR ESTIMATE (CALCULATED) > 59 mL/min/; POTASSIUM 3.5 MEQ/L (3.7-5.4); SODIUM 142 MEQ/L (136-147); UREA NITROGEN (BUN) 10 mg/dL (9-23)
[2017-11-18 06:56] LABS: GLUCOSE 83 mg/dL (70-99)
[2017-11-18 07:45] VITALS: BP 123/69
[2017-11-18] MEDS ORDERED: MIRALAX17 GM PO (09:10)
[2017-11-18] MEDS ORDERED: COLACE100 MG PO (09:10)
== END 2017-11-18 11:03 | disposition home or self-care (01) | DRG 389 ==
LOC: EME 16:24 → 3EAST 22:16 → EDOF 22:16 → CANRESERV 22:21 → ENRESERV 22:21 → 3EAST 11-17 00:15
PROVIDERS: Hospitalist; Nurse Practitioner Family
DX: K56.609 Unspecified intestinal obstruction, unspecified as to partial versus complete obstruction (principal); F11.20 Opioid dependence, uncomplicated; E86.0 Dehydration; K59.03 Drug induced constipation; T40.3X5A Adverse effect of methadone, initial encounter; F12.90 Cannabis use, unspecified, uncomplicated; F17.210 Nicotine dependence, cigarettes, uncomplicated; F31.9 Bipolar disorder, unspecified; G89.29 Other chronic pain; J44.9 Chronic obstructive pulmonary disease, unspecified; F10.21 Alcohol dependence, in remission; B18.2 Chronic viral hepatitis C; F14.10 Cocaine abuse, uncomplicated; Y90.0 Blood alcohol level of less than 20 mg/100 ml; Z85.3 Personal history of malignant neoplasm of breast; Z90.721 Acquired absence of ovaries, unilateral; Z91.5 Personal history of self-harm; Z92.3 Personal history of irradiation; Z88.2 Allergy status to sulfonamides; Y92.89 Other specified places as the place of occurrence of the external cause; Z88.5 Allergy status to narcotic agent; Z81.1 Family history of alcohol abuse and dependence; Z81.8 Family history of other mental and behavioral disorders
CPT/HCPCS: 71045; 74019; 74177; 80048; 80053; 81003; 83605; 83690; 84999; 85025; 85027; 93005; 99281; 99285; G0480; J1170; J1630; J1644; J7030; S0028

== ENCOUNTER 2017-12-17 17:06 | Emergency (ER) | payer OTHER ==
[~2017-12-17] VITALS: Ht 157.5 cm; Wt 57.4 kg
[~2017-12-17 17:06] MED LIST changes: +ARIPIPRAZOLE10 MG PO; +LYRICA50 MG PO; +MIRALAX17 GM PO; +MIRTAZAPINE45 MG PO; +PROZAC10 MG PO; +QUETIAPINE FUM300 MG PO; +TRAZODONE HCL50 MG PO; +VENLAFAXINE HC150 M1 PO
[2017-12-17 18:42] LABS: HEMATOCRIT 38.2 % (36.0-46.0); HEMOGLOBIN 13.1 G/DL (11.9-15.5); MCH 31.5 PG (29.0-34.0); MCHC 34.3 G/DL (30.0-36.0); MCV 91.8 FL (83-99); PLATELET COUNT 361 K/uL (156-360); RBC DIS.WIDTH-CV 13.3 % (11.8-14.6); RBC DIS.WIDTH-SD 45.3 % (39-53); RED BLOOD COUNT 4.16 M/uL (3.80-5.20)
[2017-12-17 18:55] LABS: CHLORIDE 103 mEq/L (99-109); SODIUM 141 mEq/L (136-147)
[2017-12-17 18:57] LABS: GLUCOSE 91 mg/dL (70-99)
[2017-12-17 19:00] LABS: CREATININE 0.8 mg/dL (0.6-1.3); GFR ESTIMATE (CALCULATED) > 59 mL/min/
[2017-12-17 19:06] LABS: TROP-I INTERPRETATION NEGATIVE; TROPONIN-I < 0.01 ng/mL (0.0-0.30)
[2017-12-17 20:17] LABS: UREA NITROGEN (BUN) 16 mg/dL (9-23)
[2017-12-17 21:38] VITALS: BP 113/78
== END 2017-12-17 21:40 | disposition home or self-care (01) ==
LOC: EME 17:06
PROVIDERS: Nurse Practitioner Family
DX: R07.89 Other chest pain (principal); F43.9 Reaction to severe stress, unspecified; F41.9 Anxiety disorder, unspecified; J43.9 Emphysema, unspecified; R56.9 Unspecified convulsions; B19.20 Unspecified viral hepatitis C without hepatic coma; F32.9 Major depressive disorder, single episode, unspecified; F31.9 Bipolar disorder, unspecified; F17.200 Nicotine dependence, unspecified, uncomplicated; Z79.891 Long term (current) use of opiate analgesic; Z85.3 Personal history of malignant neoplasm of breast; Z85.038 Personal history of other malignant neoplasm of large intestine; Z85.528 Personal history of other malignant neoplasm of kidney; Z87.19 Personal history of other diseases of the digestive system; Z90.12 Acquired absence of left breast and nipple; Z88.2 Allergy status to sulfonamides; Z88.5 Allergy status to narcotic agent; Z91.030 Bee allergy status
CPT/HCPCS: 80048; 84484; 85027; 93005; 99281; 99285

== ENCOUNTER 2017-12-18 07:37 | Inpatient (IN) | payer OTHER ==
[~2017-12-18] VITALS: Ht 157.5 cm; Wt 55.8 kg
[2017-12-18 08:28] LABS: APPEARANCE CLEAR ((CLEAR)); BILIRUBIN NEGATIVE; BLOOD MODERATE; COLOR STRAW ((YELLOW)); GLUCOSE (STRIP) NEGATIVE; KETONES NEGATIVE; LEUKOCYTES NEGATIVE; NITRITE NEGATIVE; PROTEIN (STRIP) NEGATIVE; SPECIFIC GRAVITY 1.005 (1.000-1.030); UROBILINOGEN 0.2 MG/DL (0.2-1.0)
[2017-12-18 08:31] LABS: BACTERIA RARE /HPF; EPITHELIAL CELLS RARE /HPF; MUCUS NONE SEEN /LPF; RED BLOOD CELLS 0-5 /HPF (0-5); WHITE BLOOD CELLS 0-5 /HPF (0-5)
[2017-12-18 08:38] LABS: AMPHETAMINE NEGATIVE (500 ng/mL); BENZODIAZEPINES NEGATIVE (150 ng/mL); COCAINE NEGATIVE (150 ng/mL); METHAMPHETAMINE NEGATIVE (500 ng/mL); OPIATES (MORPHINE) NEGATIVE (100 ng/mL); PHENCYCLIDINE NEGATIVE (25 ng/mL); THC CANNABINOIDS NEGATIVE (50 ng/mL); TRICYCLIC ANTIDEPRESSANTS PRESUMPTIVE POSITIVE (300 ng/mL)
[2017-12-18 08:39] LABS: BARBITURATES NEGATIVE (200 ng/mL); BUPRENORPHINE NEGATIVE (10 ng/mL); METHADONE PRESUMPTIVE POSITIVE (200 ng/mL); OXYCODONE NEGATIVE (100 ng/mL); PROPOXYPHENE NEGATIVE (300 ng/mL)
[2017-12-18 08:44] LABS: BASOPHIL (%) 0.3 % (0-1); EOSINOPHIL (%) 0.1 % (0-5); HEMOGLOBIN 13.8 G/DL (11.9-15.5); IMMATURE GRANULOCYTE (%) 0.4 % (0.0-0.7); LYMPHOCYTE (%) 7.6 % (15-42); LYMPHOCYTE COUNT 1.2 K/uL (1.0-2.8); MCH 31.3 PG (29.0-34.0); MCHC 33.7 G/DL (30.0-36.0); MONOCYTE COUNT 0.5 K/uL (0-0.8); NEUTROPHIL (%) 88.6 % (45-76); NEUTROPHIL COUNT 13.4 K/uL (1.8-6.4); PLATELET COUNT 381 K/uL (156-360); RBC DIS.WIDTH-CV 13.4 % (11.8-14.6); RBC DIS.WIDTH-SD 45.6 % (39-53); RED BLOOD COUNT 4.41 M/uL (3.80-5.20); WHITE BLOOD COUNT 15.1 K/uL (4.1-10.2)
[2017-12-18 08:55] LABS: ALBUMIN 4.2 g/dL (3.2-4.8); CHLORIDE 105 mEq/L (99-109); POTASSIUM 4.7 mEq/L (3.7-5.4); SODIUM 142 mEq/L (136-147)
[2017-12-18 08:57] LABS: GLUCOSE 100 mg/dL (70-99); TOTAL PROTEIN 7.1 g/dL (6.4-8.3)
[2017-12-18 08:59] LABS: TOTAL BILIRUBIN 0.6 mg/dL (0.0-1.0)
[2017-12-18 09:00] LABS: SERUM ETHYL ALCOHOL < 10 mg/dL
[2017-12-18 09:01] LABS: CREATININE 0.8 mg/dL (0.6-1.3); GFR ESTIMATE (CALCULATED) > 59 mL/min/
[2017-12-18 09:02] LABS: ALKALINE PHOSPHATASE 100 IU/L (3-129)
[2017-12-18 09:03] LABS: AST (GOT) 24 IU/L (2-34); UREA NITROGEN (BUN) 15 mg/dL (9-23)
[2017-12-18 09:04] LABS: SALICYLATE < 5.0 MG/DL (15-30)
[2017-12-18 09:05] LABS: TROP-I INTERPRETATION NEGATIVE; TROPONIN-I < 0.01 ng/mL (0.0-0.30)
[2017-12-18 09:05] LABS: ACETAMINOPHEN (TYLENOL) < 10 mcg/mL (10-30); ALT (GPT) 32 IU/L (3-49)
[2017-12-18 12:29] VITALS: BP 119/70
[2017-12-18 16:44] VITALS: BP 126/72
[2017-12-19 08:14] VITALS: BP 87/53
[2017-12-19 15:26] VITALS: BP 88/50
[2017-12-20 07:54] VITALS: BP 127/58
[2017-12-20 17:07] VITALS: BP 147/75
[2017-12-21 07:35] VITALS: BP 116/73
[2017-12-21] MEDS ORDERED: BUSPAR10 MG PO (09:08)
[2017-12-21] MEDS ORDERED: FLUOXETINE HCL20 MG PO (09:08)
== END 2017-12-21 11:03 | disposition home or self-care (01) | DRG 885 ==
LOC: EME 07:37 → 1WEST 10:36 → EDOF 10:36 → ENRESERV 12:21 → 1WEST 12:22
PROVIDERS: Nurse Practitioner Family
DX: F33.2 Major depressive disorder, recurrent severe without psychotic features (principal); F41.1 Generalized anxiety disorder; F11.20 Opioid dependence, uncomplicated; T43.592A Poisoning by other antipsychotics and neuroleptics, intentional self-harm, initial encounter; T43.022A Poisoning by tetracyclic antidepressants, intentional self-harm, initial encounter; T45.0X2A Poisoning by antiallergic and antiemetic drugs, intentional self-harm, initial encounter; T43.222A Poisoning by selective serotonin reuptake inhibitors, intentional self-harm, initial encounter; D75.1 Secondary polycythemia; J44.9 Chronic obstructive pulmonary disease, unspecified; D72.829 Elevated white blood cell count, unspecified; B19.20 Unspecified viral hepatitis C without hepatic coma; K58.9 Irritable bowel syndrome, unspecified; F12.90 Cannabis use, unspecified, uncomplicated; F14.90 Cocaine use, unspecified, uncomplicated; F17.200 Nicotine dependence, unspecified, uncomplicated; Z85.3 Personal history of malignant neoplasm of breast; Z85.038 Personal history of other malignant neoplasm of large intestine; Z85.528 Personal history of other malignant neoplasm of kidney; Z81.8 Family history of other mental and behavioral disorders
CPT/HCPCS: 71046; 80053; 81003; 84484; 85025; 90839; 93005; 94640; 94799; 97150 GO; 97165 GO; 99281; 99285; G0480; Q0177

== ENCOUNTER 2017-12-29 07:39 | Emergency (ER) | payer OTHER ==
[~2017-12-29] VITALS: Ht 157.5 cm; Wt 54.5 kg
[~2017-12-29 07:39] MED LIST changes: +FLUOXETINE HCL20 MG PO
[2017-12-29 08:17] LABS: HEMATOCRIT 40.4 % (36.0-46.0); HEMOGLOBIN 13.6 G/DL (11.9-15.5); MCH 31.1 PG (29.0-34.0); MCHC 33.7 G/DL (30.0-36.0); MCV 92.4 FL (83-99); PLATELET COUNT 327 K/uL (156-360); RBC DIS.WIDTH-CV 13.4 % (11.8-14.6); RBC DIS.WIDTH-SD 45.8 % (39-53); RED BLOOD COUNT 4.37 M/uL (3.80-5.20); WHITE BLOOD COUNT 8.6 K/uL (4.1-10.2)
[2017-12-29 08:31] LABS: APPEARANCE CLEAR ((CLEAR)); BILIRUBIN NEGATIVE; BLOOD SMALL; COLOR YELLOW ((YELLOW)); GLUCOSE (STRIP) NEGATIVE; KETONES NEGATIVE; LEUKOCYTES NEGATIVE; NITRITE NEGATIVE; PROTEIN (STRIP) NEGATIVE; SPECIFIC GRAVITY 1.006 (1.000-1.030); UROBILINOGEN 0.2 MG/DL (0.2-1.0)
[2017-12-29 08:35] LABS: BACTERIA RARE /HPF; EPITHELIAL CELLS RARE /HPF; MUCUS NONE SEEN /LPF; RED BLOOD CELLS 0-5 /HPF (0-5); UCUL ADDED? NO; WHITE BLOOD CELLS 0-5 /HPF (0-5)
[2017-12-29 08:40] LABS: AMPHETAMINE NEGATIVE (500 ng/mL); BARBITURATES NEGATIVE (200 ng/mL); BENZODIAZEPINES NEGATIVE (150 ng/mL); BUPRENORPHINE NEGATIVE (10 ng/mL); COCAINE NEGATIVE (150 ng/mL); METHADONE PRESUMPTIVE POSITIVE (200 ng/mL); METHAMPHETAMINE NEGATIVE (500 ng/mL); OPIATES (MORPHINE) NEGATIVE (100 ng/mL); OXYCODONE NEGATIVE (100 ng/mL); PHENCYCLIDINE NEGATIVE (25 ng/mL); PROPOXYPHENE NEGATIVE (300 ng/mL); THC CANNABINOIDS NEGATIVE (50 ng/mL); TRICYCLIC ANTIDEPRESSANTS PRESUMPTIVE POSITIVE (300 ng/mL)
[2017-12-29 08:55] LABS: CHLORIDE 103 MEQ/L (99-109); CREATININE 0.8 MG/DL (0.6-1.3); GFR ESTIMATE (CALCULATED) > 59 mL/min/; GLUCOSE 120 mg/dL (70-99); POTASSIUM 4.2 MEQ/L (3.7-5.4); SODIUM 139 MEQ/L (136-147); UREA NITROGEN (BUN) 13 mg/dL (9-23)
[2017-12-29 09:01] LABS: ACETAMINOPHEN (TYLENOL) < 10 MCG/ML (10-30); SALICYLATE < 3.0 MG/DL (15-30)
[2017-12-29 09:06] VITALS: BP 111/64
== END 2017-12-29 09:08 | disposition home or self-care (01) ==
LOC: EME 07:39
PROVIDERS: Physician Assistant
DX: F33.2 Major depressive disorder, recurrent severe without psychotic features (principal); F41.1 Generalized anxiety disorder; F19.939 Other psychoactive substance use, unspecified with withdrawal, unspecified; F17.200 Nicotine dependence, unspecified, uncomplicated; F11.20 Opioid dependence, uncomplicated; J43.9 Emphysema, unspecified; Z85.3 Personal history of malignant neoplasm of breast; Z85.038 Personal history of other malignant neoplasm of large intestine; Z90.12 Acquired absence of left breast and nipple; Z88.5 Allergy status to narcotic agent; Z88.2 Allergy status to sulfonamides
CPT/HCPCS: 80048; 81003; 85027; 90839; 99281; 99284; G0480